=== PATIENT | male | born 1970 | race Caucasian/White ===

== ENCOUNTER → 2016-12-06 | Outpatient (CLI) | payer BC | LOC: LAB 13:43 | DX: R07.9 Chest pain, unspecified (principal); I10 Essential (primary) hypertension ==

== ENCOUNTER → 2016-12-12 | Outpatient (CLI) | payer BC | LOC: CARDREHAB 14:57 | DX: I10 Essential (primary) hypertension (principal); R07.9 Chest pain, unspecified ==

== ENCOUNTER → 2021-10-01 | Day surgery (SDC) | payer BC | END | disposition home or self-care (01) | LOC: MSO 06:55 | DX: Z12.11 Encounter for screening for malignant neoplasm of colon (principal); D12.4 Benign neoplasm of descending colon; E80.4 Gilbert syndrome | CPT/HCPCS: 00811; J2704; J7120 ==